=== PATIENT | female | born 1970 | race Caucasian/White ===

== ENCOUNTER 2022-01-23 12:03 | Emergency (ER) | payer OTHER, SELFPAY ==
--- NOTE | ~2022-01-23 | CT_ITS ---
EXAMINATION: CT abdomen pelvis w con DATE: 01/23/2022 14:02 INDICATION: Right upper quadrant abdominal pain, nausea TECHNIQUE: Computed tomography (CT) of the abdomen and pelvis was performed with 100 CC Omnipaque 350 intravenous contrast. Automated exposure control and iterative reconstruction technique were employe d. Exam dose: 1260.70 mGy-cm total exam DLP. COMPARISON: None. FINDINGS: The lung bases are clear. Heart size is within normal limits. No pericardial or pleural eff usion. Small sliding hiatal hernia. Diffuse hepatic steatosis. No hepatic surface nodularity. No hepatic space-occupying mass lesion. The gallbladder appears unremarkable. No gallbladder wall thickening or pericholecystic fluid or fat str anding. No bile duct or pancreatic duct dilatation. No pancreatic mass lesion or calcification. Normal splenic size. Normal morphology of the adrenal glands. A couple of very small lower pole right renal cysts are suggested. There are at least 2 left renal cy sts, measuring up to 11 and 12 mm. Approximately 6 x 7 mm lower pole nonobstructing left renal calculus with attenuation of approximatel y 700 Hounsfield units. No other urinary tract calculus or hydroureteronephrosis. The uterus is absen t. The ovaries appear unremarkable. Normal caliber of the abdominal aorta. No intraperitoneal or retroperitoneal or pelvic mass lesion or adenopathy or ascites. Approximately 1.6 x 2.3 cm cystic lesion is noted in the right vaginal area. Normal appendix. There is a prominent of fecal colon but no bowel obstruction, bowel wall thickening, pneumatosis or intraperitoneal free air. No suspicious osteolytic or osteoblastic lesions.. IMPRESSION: Normal appendix 1.6 x 2.3 cm right vaginal cyst Approximately 7 mm nonobstructing lower pole left renal cyst Occasional renal cysts, measuring 12 mm Hepatic steatosis Status post hysterectomy Reviewed, dictated and finalized at [facility]. Reviewed, dictated and finalized at location [facility].
--- NOTE | ~2022-01-23 | US_ITS ---
EXAMINATION: US abdomen limited DATE: 01/23/2022 15:25 INDICATION: RUQ pain TECHNIQUE: Multiple grayscale and Doppler ultrasound images of limited portions of the abdomen were o btained. COMPARISON: None available. FINDINGS: The visualized portions of the pancreas are normal. The liver is increased in size with inc reased echogenicity and slightly heterogeneous echotexture. No surface nodularity. Normal hepatopetal flow in the main portal vein. The gallbladder is normal with no abnormal wall thickening, pericholec ystic fluid or stones. The common bile duct measures 4 mm. There was no sonographic Maria sign. IMPRESSION: Hepatomegaly. Echogenic liver, most commonly due to steatosis but also can be seen with hepatitis and fibrosis. Reviewed, dictated and finalized at location [facility]. IMPRESSION: Hepatomegaly. Echogenic liver, most commonly due to steatosis but also can be s een with hepatitis and fibrosis.
[2022-01-23 12:26] VITALS: BP 112/71; PULSE 84; RESP 14; TEMP 36.5; O2SAT 98
[2022-01-23 12:47] LABS: Basophils Absolute Auto 0.1 K/mm3 (0.0-0.1); Basophils Percent Auto 1.1 % (0.2-1.2); Eosinophils Absolute Auto 0.5 K/mm3 (0-0.3); Eosinophils Percent Auto 4.7 % (0-4.4); Immature Granulocyte Absolute 0.44 K/mm3 (0.00-0.031); Immature Granulocyte Percent A 4.4 % (0-0.5); Lymphocytes Absolute Auto 2.35 K/mm3 (0.9-3.2); Lymphocytes Percent Auto 23.3 % (18.3-44.2); Mean Corpuscular HGB Conc 32.6 g/dl (32-36); Mean Corpuscular Hemoglobin 29.2 pg (26-34); Mean Corpuscular Volume 89.8 fl (80-100); Mean Platelet Volume 9.5 fl (7.4-10.4); Monocytes Absolute Auto 0.6 K/mm3 (0.1-0.6); Monocytes Percent Auto 5.6 % (2.6-8.5); Neutrophils Absolute Auto 6.2 K/mm3 (1.3-6.7); Neutrophils Percent Auto 60.9 % (45.5-73.1); Platelet Count Result 293 k/mm3 (150-375); Red Blood Count 4.79 M/mm3 (4.2-5.4); Red Cell Distribution Width 13.9 % (11.5-14.5); White Blood Count 10.1 K/mm3 (4.5-10.0)
[2022-01-23 12:57] LABS: Alanine Aminotransferase 39 U/L (6-35); Albumin Level 4.2 g/dL (3.5-5.1); Alkaline Phosphatase 58 U/L (38-126); Anion Gap 12 mmol/L (8-16); Aspartate Amino Transferase 33 U/L (14-36); Bilirubin,Total 0.5 mg/dL (0.2-1.3); Blood Urea Nitrogen 15 mg/dL (7-17); Calcium 8.3 mg/dL (8.4-10.2); Carbon Dioxide 25 mmol/L (22-30); Chloride 100 mmol/L (98-107); Estimated CRCL calculation 127 ml/min; Estimated Glomerular Filt Rate > 60; Glucose 100 mg/dL (65-110); Lipase 148 U/L (23-300); Potassium 3.8 mmol/L (3.4-5.0); Sodium 137 mmol/L (137-145)
[2022-01-23 12:58] LABS: Appearance Urine Clear (Clear); Bilirubin Urine 1+ (Negative); Blood Urine Trace-intact (Negative); Color Urine Yellow (Yellow); Glucose Urine UA 2+ mg/dL (Negative); Ketones Urine 1+ mg/dL (Negative); Leukocyte Esterase Ur Negative LEU/UL (Negative); Nitrate Urine Negative (Negative); Protein Urine Negative (Negative); Urobilinogen Urine 0.2 mg/dL (<2.0)
[2022-01-23 13:07] LABS: Bacteria Urine Trace /hpf; Mucus Urine Rare /lpf; Squamous Epithelial Cell Urine Many /hpf (Few); WBC Urine 0-3 /hpf
[2022-01-23 13:12] LABS: Add Urine Microscopic? YES
--- NOTE | 2022-01-23 14:54 | ED.ABDPAIN ---
HPI - Abdominal Pain General Chief Complaint: Abdominal Pain Stated Complaint: RUQ PAIN Time Seen by Provider: 01/23/22 13:27 History of Present Illness HPI narrative: 51-year-old female presented to the emergency department from an urgent care for evaluation of abdominal pain. Patient states that she initially presented to the urgent care for evaluation of persistent sinus infection after a recent episode of bronchitis. During her exam they pressed on her abdomen and she had new tenderness. She was sent to the emergency room for evaluation for the new tenderness. Patient denies any significant abdominal pain but does admit to having tenderness to palpation. Related Data Allergies Allergy/AdvReac Type Severity Reaction Status Date / Time terbinafine Allergy Unknown Rash Verified 01/23/22 13:24 Review of Systems Review of Systems: CONSTITUTIONAL: Denies fever, chills, or sweats. EYES: Denies visual changes, redness, or discharge. ENT: Denies rhinorrhea, congestion, sore throat, or otalgia. CARDIOVASCULAR: Denies chest pain, palpitations, or edema. RESPIRATORY: See HPI GASTROINTESTINAL: See HPI GENITOURINARY: Denies dysuria or hematuria. SKIN: Denies rash or itching. MUSCULOSKELETAL: Denies back pain, joint pain, or myalgia. NEUROLOGIC: Denies headache, numbness, or weakness. [facility] Family History Family History (Updated 11/15/14 @ 10:46 by DOCTOR UNKNOWN) Other Cerebrovascular accident Diabetes mellitus Family history of cardiovascular disease Hypertension Social History Social History Smoking status: Never smoker Alcohol intake: current Exam Narrative: APPEARANCE: Well appearing, no pain, no distress, well-nourished. HEAD: normocephalic, atraumatic. EYES: PERRLA/EOMI, conjunctivae clear. NOSE: Normal no drainage EARS:TMS clear with good light reflex. THROAT: Pharynx clear, no exudate. NECK: Supple. No adenopathy, no masses. RESPIRATORY: Airway patent, respirations nonlabored. Clear to auscultation bilaterally, no rales, rhonchi, wheezing. CARDIOVASCULAR: Regular rate and rhythm without murmurs rubs or gallops. ABDOMINAL: Right-sided on tenderness to palpation MUSCULOSKELETAL: Moves all extremities. Strength/ROM intact, No edema, No calf tenderness. NEURO: Alert. Cranial nerves II through XII intact. Grossly intact SKIN: Warm, dry. Normal Color Course Course Emergency Course: Patient is afebrile with a leukocytosis of 10.1. CT scan showed normal appendix, right vaginal cyst, nonobstructing renal cyst, hepatic steatosis. Right upper quadrant ultrasound was due to the patient having some abdominal right upper quadrant tenderness. No evidence of acute cholecystitis was noted. Patient was updated the results of her work-up and was comfortable having close follow-up with her primary care physician. Patient reiterated that she is mainly here for the nasal congestion. Patient is still taking antibiotics. Patient was encouraged to continue the antibiotics and to also take a mild decongestant. Patient was educated reasons to return to the emergency department. All questions concerns were addressed. Vital Signs Vital signs: Vital Signs Temperature 97.7 F 01/23/22 12:26 Pulse Rate 84 01/23/22 12:26 Respiratory Rate 14 01/23/22 12:26 Blood Pressure 112/71 01/23/22 12:26 Pulse Oximetry 98 01/23/22 12:26 Oxygen Delivery Room Air 01/23/22 12:26 Temperature 97.7 F 01/23/22 12:26 Pulse Rate 86 01/23/22 17:15 Respiratory Rate 16 01/23/22 17:15 Blood Pressure 142/84 H 01/23/22 17:15 Pulse Oximetry 98 01/23/22 17:15 Oxygen Delivery Room Air 01/23/22 12:26 MDM - Abdominal Pain Lab Data Attestation: I reviewed the patient's lab results. Result diagrams: 01/23/22 12:37 01/23/22 12:37 Labs: Lab Results 01/23/22 01/23/22 01/23/22 Range/Units 12:37 12:37 12:42 WBC 10.1 H (4.5-10.0) K/mm3 RBC 4.79 (4.2-5.4) M/m
[2022-01-23 17:15] VITALS: BP 142/84; PULSE 86; RESP 16; O2SAT 98
== END 2022-01-23 17:16 | disposition home or self-care (01) ==
PROVIDERS: Emergency Medicine; Emergency Provider Emergency Medicine; PCP Internal Medicine
DX: R10.11 Right upper quadrant pain (principal); R09.81 Nasal congestion; N28.1 Cyst of kidney, acquired; K76.0 Fatty (change of) liver, not elsewhere classified
CPT/HCPCS: 36415; 74177; 76705; 80053; 81001; 83690; 85025; 99284; Q9967

== ENCOUNTER 2022-07-04 19:09 | Observation (INO) | payer OTHER, SELFPAY ==
[2022-07-04] VITALS (15 sets, daily range): BP systolic 112; BP diastolic 65–66; PULSE 58–76; RESP 9–17; TEMP 36.6; O2SAT 93–99
--- NOTE | ~2022-07-04 | XR_ITS ---
EXAMINATION: XR chest 2V DATE: 07/04/2022 19:48 INDICATION: Chest pain and nausea TECHNIQUE: AP and lateral views of the chest are obtained. COMPARISON: 12/18/2017 FINDINGS: The lungs are free of acute opacities. No pleural effusion or pneumothorax. The cardiomedia stinal silhouette is normal. There is moderate thoracic spondylosis. IMPRESSION: 1. No acute cardiopulmonary abnormality. Reviewed, dictated and finalized at location [facility].
--- NOTE | 2022-07-04 19:16 | ECG_ITS ---
Measurements Intervals [place] Rate: 60 P: 47 MT: 200 QRS: -9 QRSD: 105 T: 19 QT: 405 QTc: 405 Interpretive Statements SINUS RHYTHM LOW QRS VOLTAGE IN PRECORDIAL LEADS CANNOT RULE OUT INFERIOR INFARCT, AGE INDETERMINATE ABNORMAL ECG NO PREVIOUS ECG AVAILABLE FOR COMPARISON Electronically Signed On 07-05-2022 16:36:43 CDT by Clinton Thomas M.D.
[2022-07-04 19:49] LABS: Basophils Absolute Auto 0.1 K/mm3 (0.0-0.1); Eosinophils Absolute Auto 0.4 K/mm3 (0-0.3); Eosinophils Percent Auto 3.9 % (0-4.4); Hematocrit 40.7 % (37.0-47.0); Hemoglobin 13.4 g/dL (12.0-15.0); Immature Granulocyte Absolute 0.11 K/mm3 (0.00-0.031); Immature Granulocyte Percent A 1.1 % (0-0.5); Lymphocytes Absolute Auto 2.27 K/mm3 (0.9-3.2); Lymphocytes Percent Auto 23.2 % (18.3-44.2); Mean Corpuscular HGB Conc 32.9 g/dl (32-36); Mean Corpuscular Hemoglobin 28.7 pg (26-34); Mean Corpuscular Volume 87.2 fl (80-100); Mean Platelet Volume 9.8 fl (7.4-10.4); Monocytes Absolute Auto 0.5 K/mm3 (0.1-0.6); Monocytes Percent Auto 5.4 % (2.6-8.5); Neutrophils Absolute Auto 6.4 K/mm3 (1.3-6.7); Neutrophils Percent Auto 65.4 % (45.5-73.1); Platelet Count Result 339 k/mm3 (150-375); Red Blood Count 4.67 M/mm3 (4.2-5.4); Red Cell Distribution Width 13.3 % (11.5-14.5); White Blood Count 9.8 K/mm3 (4.5-10.0)
[2022-07-04 20:01] LABS: Alanine Aminotransferase 35 U/L (6-35); Albumin Level 4.8 g/dL (3.5-5.1); Alkaline Phosphatase 67 U/L (38-126); Anion Gap 9 mmol/L (8-16); Aspartate Amino Transferase 29 U/L (14-36); Bilirubin,Total 0.5 mg/dL (0.2-1.3); Blood Urea Nitrogen 18 mg/dL (7-17); Calcium 9.2 mg/dL (8.4-10.2); Carbon Dioxide 27 mmol/L (22-30); Chloride 100 mmol/L (98-107); Estimated CRCL calculation 128 ml/min; Estimated Glomerular Filt Rate > 60; Glucose 121 mg/dL (65-110); Lipase 173 U/L (23-300); Potassium 3.8 mmol/L (3.4-5.0); Sodium 136 mmol/L (137-145)
[2022-07-04 20:03] LABS: Prothrombin Time 12.4 Seconds (11.1-14.7)
[2022-07-04 20:04] LABS: Partial Thromboplastin Time 27.8 SECONDS (22.3-36.8)
[2022-07-04] MEDS: MORPHINE SULFATE (*CRX) 4 MG/ML INJ IV PUSH (20:09)
[2022-07-04] MEDS: ASPIRIN 81 MG CHEWABLE TABLET 324 MG PO (20:09)
[2022-07-04] MEDS: NITROGLYCERIN SL 0.4 MG TABLET SUBLINGUAL (20:10)
[2022-07-04 20:11] LABS: Troponin I < 0.012 ng/mL (0.000-0.034)
--- NOTE | 2022-07-04 20:35 | ED.GENADULT ---
HPI - General Adult General Chief complaint: Chest Pain Stated complaint: chest pain/pressure Time Seen by Provider: 07/04/22 19:44 History of Present Illness HPI narrative: Patient 51-year-old female who presents the emergency department with chief complaint of chest pain. Patient reports that today she had sudden onset of discomfort in her chest. The patient states that the pain radiated up into her neck patient reports that she got diaphoretic when this episode happened. EMS was called the patient had 2 nitros by EMS and received a dose of morphine that had improvement in her chest pain patient reports she still has some tightness in her chest. Patient reports no prior CT patient does report that she has history of hypertension diabetes and had a cerebral aneurysm that was coiled in 2008. Related Data Allergies Allergy/AdvReac Type Severity Reaction Status Date / Time terbinafine Allergy Unknown Rash Verified 01/23/22 13:24 Review of Systems Review of Systems: A 10 system review of systems was completed on the patient and is negative except for what is stated in the HPI. Nursing and ancillary documentation was reviewed. [facility] Family History Family History Other Cerebrovascular accident Diabetes mellitus Family history of cardiovascular disease Hypertension Social History Social History Smoking status: Never smoker Alcohol intake: current Exam Narrative: GENERAL: Well-appearing, well-nourished, and in no acute distress. HEAD: Normocephalic, atraumatic. EYES: PERRLA and EOMI. ENT: Nares clear, no rhinorrhea or epistaxis. Mucous membranes moist. NECK: Supple. CHEST: Clear to auscultation. No respiratory distress. HEART: Regular rate and rhythm. No murmur heard. Normal peripheral pulses. ABDOMEN: Soft, nontender, nondistended, normal active bowel sounds. EXTREMITIES: Normal range of motion. No edema. SKIN: Warm, dry, no rash. NEURO: No focal deficits. Alert and oriented x3. PSYCH: Normal mood and affect. Course Vital Signs Vital signs: Vital Signs Temperature 36.6 C 07/04/22 19:25 Pulse Rate 64 07/04/22 19:25 Respiratory Rate 10 L 07/04/22 19:25 Blood Pressure 112/66 07/04/22 19:25 Pulse Oximetry 96 04/13/23 19:25 Oxygen Delivery Room Air 07/04/22 19:25 Temperature 36.6 C 07/04/22 19:25 Pulse Rate 62 07/05/22 00:52 Respiratory Rate 14 07/05/22 00:52 Blood Pressure 104/66 07/05/22 00:52 Pulse Oximetry 96 07/05/22 00:52 Oxygen Delivery Room Air 07/04/22 19:25 Medical Decision Making MDM Narrative Medical decision making narrative: Differential diagnosis includes ACS, chest wall pain, unstable angina, Initial EKG is sinus rhythm rate of [address] elevation or ST depression Laboratory studies were obtained which showed a negative troponin negative lipase electrolytes showed no acute abnormalities CBC was within normal limits Chest x-ray showed no focal infiltrate Vital Signs Vital Signs: Vital Signs Temperature 36.6 C 07/04/22 19:25 Pulse Rate 64 07/04/22 19:25 Respiratory Rate 10 L 07/04/22 19:25 Blood Pressure 112/66 07/04/22 19:25 Pulse Oximetry 96 07/04/22 19:25 Oxygen Delivery Room Air 07/04/22 19:25 Temperature 36.6 C 07/04/22 19:25 Pulse Rate 62 07/05/22 00:52 Respiratory Rate 14 07/05/22 00:52 Blood Pressure 104/66 07/05/22 00:52 Pulse Oximetry 96 07/05/22 00:52 Oxygen Delivery Room Air 07/04/22 19:25 Lab Data 07/04/22 19:34 07/04/22 19:34 Labs: Lab Results 07/04/22 07/04/22 07/04/22 Range/Units 19:34 19:34 19:34 WBC 9.8 (4.5-10.0) K/mm3 RBC 4.67 (4.2-5.4) M/mm3 Hgb 13.4 (12.0-15.0) g/dL Hct 40.7 (37.0-47.0) % MCV 87.2 (80-100) fl MCH 28.7 (26-34) pg MCHC 32.9 (32-36) g/dl RDW 13.3 (
[2022-07-04 23:06] LABS: Troponin I < 0.012 ng/mL (0.000-0.034)
[2022-07-05 00:52] VITALS: BP 104/66; PULSE 62; RESP 14; O2SAT 96
[2022-07-05 01:56] VITALS: BMI 33.7
--- NOTE | 2022-07-05 01:57 | ADMGEN ---
This patient, Danni Boone, was admitted to Intensive Care Unit-3. Patient/family oriented to hospital policies and general routines including ID bracelet, bed and alarms, visiting hours, pain management, procedures, bathroom and other care routines, personal items, smoking policy, room service/diet, and visiting hours. Information on how to activate the Rapid Response Team has been discussed. Patient/Family are encouraged to report perceived risks to care and to ask questions if they do not understand what they are told or what they should do.
[2022-07-05 02:03] LABS: Troponin I < 0.012 ng/mL (0.000-0.034)
[2022-07-05 04:00] VITALS: BP 108/60; PULSE 70; PULSE 72; RESP 13; TEMP 36.4; O2SAT 94
[2022-07-05 08:00] VITALS: BP 106/67; PULSE 56; PULSE 68; RESP 10; TEMP 37.1; O2SAT 97
[2022-07-05 09:56] VITALS: PULSE 61
[2022-07-05] MEDS: ONDANSETRON INJ 4 MG/2 ML VIAL IV PUSH (10:01)
[2022-07-05 11:21] LABS: Glucose Point of Care 128 mg/dl (65-105)
--- NOTE | 2022-07-05 11:22 | PM.IMHP ---
H&P: HPI History of Present Illness Date/Time: 07/05/22 11:22 Chief Complaint: Chest pain Narrative: Patient 51-year-old female who presents the emergency department with chief complaint of chest pain.? Patient reports that today she had sudden onset of discomfort in her chest.? The patient states that the pain radiated up into her neck patient reports that she got diaphoretic when this episode happened.? EMS was called the patient had 2 nitros by EMS and received a dose of morphine that had improvement in her chest pain patient reports she still has some tightness in her chest.? Patient reports no prior PR patient does report that she has history of hypertension diabetes and had a cerebral aneurysm that was coiled in 2008. Review of Systems Review of Systems: A 10 system review of systems was completed on the patient and is negative except for what is stated in the HPI. Nursing and ancillary documentation was reviewed. [facility] Family History Family History Grandparent Cerebrovascular accident Hypertension Mother Diabetes mellitus Family history of cardiovascular disease Mother No problems noted. Social History Social History Smoking status: Current every day smoker Tobacco type: e-cigarettes/vaping Additional smoking assessment comments: Not sure on how much nicotine, smokes one pod a day of custom fluid Alcohol intake: current Substance use: current Substance use type: marijuana Last use: 07/03/22 Lack of Transportation: No Lack of Food: Never True Current Housing: I Have Housing Concerned About Future Housing: No Difficulty Paying Gas/Electric Bills: No Difficulty Paying for Meds: No Currently Unemployed: No Education: High School Diploma/GED Difficulty w/ Childcare or Family Care: No Spiritual care concerns: No Meds Home Medications and Allergies Home Medications Medication Instructions Recorded Confirmed Type aripiprazole 10 mg tablet 10 mg PO DAILY 07/05/22 07/05/22 History celecoxib 100 mg capsule 100 mg PO DAILY 07/05/22 07/05/22 History empagliflozin 10 mg tablet 10 mg PO DAILY 07/05/22 07/05/22 History (Jardiance) escitalopram oxalate 10 mg tablet 10 mg PO HS 07/05/22 07/05/22 History famotidine 20 mg tablet 10 mg PO BID PRN Acid Reflux 07/05/22 07/05/22 History insulin glargine 100 unit/mL (3 36 unit subcut QAM 07/05/22 07/05/22 History mL) subcutaneous pen (Basaglar KwikPen U-100 Insulin) liraglutide 0.6 mg/0.1 mL (18 mg/3 1.8 mg subcut DAILY 07/05/22 07/05/22 History mL) subcutaneous pen injector (Victoza 3-Mathew) lisinopril 20 mg tablet 20 mg PO DAILY 07/05/22 07/05/22 History metformin 500 mg tablet 500 mg PO BID 07/05/22 07/05/22 History metoprolol succinate 50 mg 50 mg PO DAILY 07/05/22 07/05/22 History tablet,extended release 24 hr pregabalin 200 mg capsule 200 mg PO BID 07/05/22 07/05/22 History trazodone 100 mg tablet 200 mg PO HS 07/05/22 07/05/22 History Allergies Allergy/AdvReac Type Severity Reaction Status Date / Time terbinafine Allergy Unknown Rash Verified 01/23/22 13:24 Vital Signs Vital Signs - 24 hr 07/04/22 19:25 07/04/22 19:30 07/04/22 19:28 Temperature 97.8 F Pulse Rate 64 66 60 Respiratory Rate 10 L 12 Blood Pressure 112/66 Pulse Oximetry 96 99 Oxygen Delivery Room Air 07/04/22 19:30 07/04/22 19:31 07/04/22 19:48 Temperature Pulse Rate 72 63 69 Respiratory Rate 14 13 10 L Blood Pressure 112/65 Pulse Oximetry 96 95 97 Oxygen Delivery 07/04/22 20:02 07/04/22 20:16 07/04/22 20:30 Temperature Pulse Rate 58 L 71 65 Respiratory Rate 11 L 16 14 Blood Pressure Pulse Oximetry 96 95 95 Oxygen Delivery 07/04/22 20:45 07/04/22 21:00 07/04/22 21:16 Temperature Pulse Rate 60 66 66 Respiratory Rate 10 L 15 11 L Blood Pressure Pulse Oximetry 99 93
--- NOTE | 2022-07-05 12:14 | PM.DS ---
DS: Admitting Diagnosis Discharge Date 07/05/22 Admitting Diagnosis Chest pain DS: Discharge Diagnosis Discharge Diagnosis (1) Chest pain: Code(s): R07.9 - Chest pain, unspecified Status: Acute (2) HTN (hypertension): Code(s): I10 - Essential (primary) hypertension Status: Acute (3) DM type 2 (diabetes mellitus, type 2): Code(s): E11.9 - Type 2 diabetes mellitus without complications Status: Acute DS: Summary Hospital Course Hospital Course: Patient was admitted with chest pain. Troponin was negative. Patient was waiting for Cardiology consult but she decided to leave AMA Time Spent with Patient Time attestation: Total time spent providing and/or coordinating discharge services: DS: Data Data Completed and Pending Labs on day of discharge: Labs from last 24 hours 07/05/22 07/05/22 07/04/22 11:18 01:15 22:20 WBC RBC Hgb Hct MCV MCH MCHC RDW Plt Count MPV Immature Gran % (Auto) Neut % (Auto) Lymph % (Auto) [place] % (Auto) Eos % (Auto) Baso % (Auto) Lymph # (Auto) [place] # (Auto) Eos # (Auto) Baso # (Auto) Abs Immat Gran (auto) Absolute Neuts (auto) Absolute Nucleated RBC Nucleated RBC % PT INR APTT Sodium Potassium Chloride Carbon Dioxide Anion Gap BUN Creatinine Estim Creat Clear Calc Estimated GFR Glucose POC Capillary Glucose 128 H Calcium Total Bilirubin AST ALT Alkaline Phosphatase Troponin I < 0.012 < 0.012 Total Protein Albumin Lipase 07/04/22 07/04/22 07/04/22 19:34 19:34 19:34 WBC 9.8 RBC 4.67 Hgb 13.4 Hct 40.7 MCV 87.2 MCH 28.7 MCHC 32.9 RDW 13.3 Plt Count 339 MPV 9.8 Immature Gran % (Auto) 1.1 H Neut % (Auto) 65.4 Lymph % (Auto) 23.2 [place] % (Auto) 5.4 Eos % (Auto) 3.9 Baso % (Auto) 1.0 Lymph # (Auto) 2.27 [place] # (Auto) 0.5 Eos # (Auto) 0.4 H Baso # (Auto) 0.1 Abs Immat Gran (auto) 0.11 H Absolute Neuts (auto) 6.4 Absolute Nucleated RBC 0.0 Nucleated RBC % 0.0 PT 12.4 INR 1.0 APTT 27.8 Sodium 136 L Potassium 3.8 Chloride 100 Carbon Dioxide 27 Anion Gap 9 BUN 18 H Creatinine 0.50 L Estim Creat Clear Calc 128 Estimated GFR > 60 Glucose 121 H POC Capillary Glucose Calcium 9.2 Total Bilirubin 0.5 AST 29 ALT 35 Alkaline Phosphatase 67 Troponin I < 0.012 Total Protein 8.0 Albumin 4.8 Lipase 173 Discharge Plan Discharge Consulting providers: Spike Rossi Patient Disposition: Left Against Medical Advice Patient Instructions: How to Stop Smoking (DC), Electronic Cigarettes and Your Health (GEN) Discharge Medications: No Action metformin 500 mg tablet 500 mg PO BID metoprolol succinate 50 mg tablet extended release 24 hr 50 mg PO DAILY lisinopril 20 mg tablet 20 mg PO DAILY famotidine 20 mg tablet 10 mg PO BID PRN (Reason: Acid Reflux) trazodone 100 mg tablet 200 mg PO HS celecoxib 100 mg capsule 100 mg PO DAILY escitalopram oxalate 10 mg tablet 10 mg PO HS aripiprazole 10 mg tablet 10 mg PO DAILY pregabalin 200 mg capsule 200 mg PO BID insulin glargine [Basaglar KwikPen U-100 Insulin] 100 unit/mL (3 mL) insulin pen 36 unit SUBCUT QAM Victoza 3-Mathew 0.6 mg/0.1 mL (18 mg/3 mL) pen injector 1.8 mg SUBCUT DAILY Jardiance 10 mg tablet 10 mg PO DAILY Date of admission: 07/05/22 00:59 Primary Care Provider: Frank,Mu Admitting Provider: Ann Arreola Attending physician on admission: Abdulkadir Hayes Condition: Stable
== END 2022-07-05 12:12 | disposition left against medical advice (07) ==
LOC: ANHED 07-05 00:59 → ANHICU 07-05 01:13
PROVIDERS: Emergency Medicine; Admitting Provider Hospitalist; Emergency Provider Emergency Medicine; PCP Internal Medicine; Visit Provider Hospitalist
DX: R07.9 Chest pain, unspecified (principal); I10 Essential (primary) hypertension; E11.9 Type 2 diabetes mellitus without complications; R94.31 Abnormal electrocardiogram [ECG] [EKG]; F17.290 Nicotine dependence, other tobacco product, uncomplicated; F10.90 Alcohol use, unspecified, uncomplicated; F12.90 Cannabis use, unspecified, uncomplicated; Z79.4 Long term (current) use of insulin; Z79.84 Long term (current) use of oral hypoglycemic drugs; Z79.899 Other long term (current) drug therapy; Z82.49 Family history of ischemic heart disease and other diseases of the circulatory system; Z83.3 Family history of diabetes mellitus
CPT/HCPCS: 36415; 71046; 80053; 82948; 83690; 84484; 85025; 85610; 85730; 93005; 96374; 99285; A9270; G0378; J2270; J2405

== ENCOUNTER 2023-01-15 17:31 | Emergency (ER) | payer OTHER, SELFPAY ==
[2023-01-15] VITALS (13 sets, daily range): BP systolic 109–133; BP diastolic 65–97; PULSE 52–71; RESP 13–20; TEMP 36.4; O2SAT 95–100
--- NOTE | ~2023-01-15 | XR_ITS ---
EXAMINATION: XR chest 1V portable Exam Date/Time: 01/15/2023 20:10 CDT HISTORY: cough, Covid +, smoker Comparison: 07/04/2022. RESULT: Lines, tubes, and devices: None. Lungs and pleura: Clear. Cardiomediastinal silhouette: Stable. Other: No acute osseous or upper abdominal finding. IMPRESSION: No acute cardiopulmonary process. Reviewed, dictated and finalized at location K.
--- NOTE | ~2023-01-15 | CT_ITS ---
EXAMINATION: CTA chest PE protocol DATE: 01/15/2023 21:41 INDICATION: Dyspnea, elevated D-dimer TECHNIQUE: Computed tomography angiography (CTA) of the chest was performed with 100 mL Omnipaque-350 intravenous contrast timed to evaluate the pulmonary arteries. Coronal maximum intensity projection 3D-reconstructions were created by the technologist. The dose-length product (DLP) was 781.87 mGy-cm. Automated exposure control and iterative reconstruction technique were employed. COMPARISON: None. FINDINGS: Lung parenchyma and airways: Mild atelectasis otherwise clear x-ray chest, same date. Pleura: Unremarkable. Thoracic inlet, axillae and chest wall: Unremarkable. Thoracic aorta: Normal. Mediastinum: Normal. Heart and pericardium: Normal. Coronary artery calcifications: Absent. Upper abdomen: Steatosis. Bones: No acute osseous finding. Pulmonary arteries: Study quality: Adequate. No pulmonary emboli detected. IMPRESSION: No CT evidence of acute pulmonary embolus. Reviewed, dictated and finalized at location K.
--- NOTE | 2023-01-15 20:02 | ECG_ITS ---
Measurements Intervals [place] Rate: 61 P: 51 DE: 228 QRS: -3 QRSD: 90 T: 7 QT: 420 QTc: 425 Interpretive Statements SINUS RHYTHM WITH FIRST DEGREE AV BLOCK LOW QRS VOLTAGE IN PRECORDIAL LEADS [QRS DEFLECTION < 1.0 mV IN CHEST LEADS] COMPARED TO ECG 07/04/2022 19:27:13 FIRST DEGREE AV BLOCK NOW PRESENT Electronically Signed On 01-16-2023 12:55:38 CDT by Rica Yepez M.D.
--- NOTE | 2023-01-15 20:05 | ED.GENADULT ---
HPI - General Adult General Chief complaint: Unspecified Stated complaint: reaction to antibx Time Seen by Provider: 01/15/23 19:50 Source: patient Limitations: no limitations History of Present Illness HPI narrative: Patient is a 52-year-old female present to the emergency department complaining of shortness of breath, cough, nasal congestion. Patient states that she been experiencing symptoms for the past 2 weeks and notes that she was diagnosed with COVID as an outpatient if she were half weeks ago and then tested positive again a few days ago and feels as though her sore throat is improving however she is having a persistent cough that is productive of yellow sputum and she was started on a Z-Mathew today and took 1 dose by her primary care physician who called in a prescription and she talked to them but did not see the provider. Patient denies chest pain. Patient notes that she has been feeling progressively more short of breath with exertion and feels short of breath just walking across the room. Patient denies history of heart disease or abnormal heart rhythms. Patient denies history of blood clots or unilateral lower extremity swelling. Patient denies any recent injuries or rash. Patient denies nausea, vomiting, abdominal pain, melena, hematochezia. Patient emesis some softer stools. Patient denies use of immunosuppressants but admits to history of ankylosing spondylitis in remission no symptoms to history of diabetes and high blood pressure and denies any history of coronary intervention. Patient denies fever but admits to some hot flashes intermittently at home. Related Data Home Medications Medication Instructions Recorded Confirmed aripiprazole 10 mg tablet 10 mg PO DAILY 07/05/22 07/05/22 celecoxib 100 mg capsule 100 mg PO DAILY 07/05/22 07/05/22 empagliflozin 10 mg tablet 10 mg PO DAILY 07/05/22 07/05/22 (Jardiance) escitalopram oxalate 10 mg tablet 10 mg PO HS 07/05/22 07/05/22 famotidine 20 mg tablet 10 mg PO BID PRN Acid Reflux 07/05/22 07/05/22 insulin glargine 100 unit/mL (3 36 unit subcut QAM 07/05/22 07/05/22 mL) subcutaneous pen (Basaglar KwikPen U-100 Insulin) liraglutide 0.6 mg/0.1 mL (18 mg/3 1.8 mg subcut DAILY 07/05/22 07/05/22 mL) subcutaneous pen injector (365 Good Teachertoza 3-Mathew) lisinopril 20 mg tablet 20 mg PO DAILY 07/05/22 07/05/22 metformin 500 mg tablet 500 mg PO BID 07/05/22 07/05/22 metoprolol succinate 50 mg 50 mg PO DAILY 07/05/22 07/05/22 tablet,extended release 24 hr pregabalin 200 mg capsule 200 mg PO BID 07/05/22 07/05/22 trazodone 100 mg tablet 200 mg PO HS 07/05/22 07/05/22 Allergies Allergy/AdvReac Type Severity Reaction Status Date / Time terbinafine Allergy Unknown Rash Verified 01/23/22 13:24 Review of Systems Review of Systems: A 10 system review of systems was completed on the patient and is negative except for what is stated in the HPI. Nursing and ancillary documentation was reviewed. [facility] Family History Family History Grandparent Cerebrovascular accident Hypertension Mother Diabetes mellitus Family history of cardiovascular disease Mother No problems noted. Social History Social History Smoking status: Current every day smoker Tobacco type: e-cigarettes/vaping Additional smoking assessment comments: Not sure on how much nicotine, smokes one pod a day of custom fluid Alcohol intake: current Substance use: current Substance use type: marijuana Last use: 07/03/22 Lack of Transportation: No Lack of Food: Never True Current Housing: I Have Housing Concerned About Future Housing: No Difficulty Paying Gas/Electric Bills: No Difficulty Paying for Meds: No Currently Unemployed: No Education: High School Diploma/GED Difficulty w/ Childcare or Family Care: No Spiritual care concerns: No Comments At time of
[2023-01-15] MEDS: SODIUM CHLORIDE 0.9% IV 1,000 ML 999 ML IV CONT (20:37)
[2023-01-15 20:45] LABS: Basophils Absolute Auto 0.1 K/mm3 (0.0-0.1); Basophils Percent Auto 1.2 % (0.2-1.2); Eosinophils Absolute Auto 0.5 K/mm3 (0-0.3); Eosinophils Percent Auto 6.2 % (0-4.4); Hemoglobin 13.8 g/dL (12.0-15.0); Immature Granulocyte Absolute 0.16 K/mm3 (0.00-0.031); Immature Granulocyte Percent A 1.9 % (0-0.5); Lymphocytes Absolute Auto 2.26 K/mm3 (0.9-3.2); Lymphocytes Percent Auto 26.2 % (18.3-44.2); Mean Corpuscular HGB Conc 32.9 g/dl (32-36); Mean Corpuscular Hemoglobin 28.5 pg (26-34); Mean Corpuscular Volume 86.8 fl (80-100); Mean Platelet Volume 10.2 fl (7.4-10.4); Monocytes Absolute Auto 0.4 K/mm3 (0.1-0.6); Monocytes Percent Auto 5.1 % (2.6-8.5); Neutrophils Absolute Auto 5.1 K/mm3 (1.3-6.7); Neutrophils Percent Auto 59.4 % (45.5-73.1); Platelet Count Result 322 k/mm3 (150-375); Red Blood Count 4.84 M/mm3 (4.2-5.4); Red Cell Distribution Width 13.1 % (11.5-14.5); White Blood Count 8.6 K/mm3 (4.5-10.0)
[2023-01-15 20:55] LABS: INR 0.9; Prothrombin Time 12.7 Seconds (11.1-14.7)
[2023-01-15 20:56] LABS: Partial Thromboplastin Time 26.7 SECONDS (22.3-36.8)
[2023-01-15 20:58] LABS: Alanine Aminotransferase 32 U/L (6-35); Albumin Level 4.4 g/dL (3.5-5.1); Alkaline Phosphatase 61 U/L (38-126); Anion Gap 9 mmol/L (8-16); Aspartate Amino Transferase 27 U/L (14-36); Bilirubin,Total 0.4 mg/dL (0.2-1.3); Blood Urea Nitrogen 16 mg/dL (7-17); Calcium 9.3 mg/dL (8.4-10.2); Carbon Dioxide 23 mmol/L (22-30); Chloride 102 mmol/L (98-107); Estimated CRCL calculation 151 ml/min; Estimated Glomerular Filt Rate > 60; Glucose 241 mg/dL (65-110); Magnesium 1.7 mg/dL (1.6-2.3); Potassium 3.9 mmol/L (3.4-5.0); Sodium 134 mmol/L (137-145)
[2023-01-15 21:00] LABS: D Dimer 0.91 ug/mL (<0.48)
[2023-01-15 21:09] LABS: NT Pro B Type Natriuretic Pept 29 pg/mL (19.9-100); Troponin I < 0.012 ng/mL (0.000-0.034)
== END 2023-01-15 23:03 | disposition home or self-care (01) ==
PROVIDERS: Emergency Provider Student in an Organized Health Care Education/Training Program; PCP Internal Medicine
DX: R06.00 Dyspnea, unspecified (principal); U09.9 Post COVID-19 condition, unspecified; I44.30 Unspecified atrioventricular block; F17.290 Nicotine dependence, other tobacco product, uncomplicated
CPT/HCPCS: 36415; 71045; 71275; 80053; 83735; 83880; 84443; 84484; 85025; 85380; 85610; 85730; 93005; 96360; 99284; J7030; Q9967

== ENCOUNTER 2023-03-06 18:52 | Observation (INO) | payer SELFPAY ==
--- NOTE | ~2023-03-06 | XR_ITS ---
EXAMINATION: XR hip BI 2V w AP pelvis DATE: 03/06/2023 20:01 INDICATION: Pelvic pain post fall TECHNIQUE: Anteroposterior view of the pelvis and anteroposterior and frog-leg lateral views of the l eft hip and anteroposterior and frog-leg lateral views of the right hip and were obtained. COMPARISON: None. FINDINGS: Alignment is normal. No fracture. Particular osteoarthritis, mild at the bilateral hips and moderate at the bilateral sacroiliac joints. There is also severe lower lumbar facet osteoarthritis. There are few phleboliths in the left hemipelvis. There are couple stones at the lower pole of the left kidney the larger measuring 6 mm. IMPRESSION: 1. Degenerative skeletal changes in the pelvis and lower lumbar spine. No acute osseous abnormality. 2. Left nephrolithiasis. Reviewed, dictated and finalized at location A. SE CONSULTANT
--- NOTE | ~2023-03-06 | US_ITS ---
EXAMINATION: US carotid duplex BI DATE: 03/07/2023 10:53 INDICATION: Syncope. TECHNIQUE: Grayscale, color Doppler, and pulsed Doppler images of the cervical carotid arteries were obtained. The degree of vessel stenosis is placed in one of the following categories: normal, <50%, 5 0-69%, >=70% but less than near-occlusion, near-occlusion, or total occlusion. Note that percent sten osis relative to normal distal artery lumen diameter is indirectly measured from velocity measurement s as described by Tanner, et al. Radiology 2003; 229:340-346. COMPARISON: Ultrasound 10/05/2003 FINDINGS: RIGHT: The right common carotid artery (CCA) peak systolic velocity (PSV) is 113 cm/s. The right internal ca rotid artery (ICA) PSV is 73 cm/s. The right ICA end-diastolic velocity (EDV) is 34 cm/s. The right I CA/CCA PSV ratio is 0.7. Grayscale and color Doppler images yield an estimate of <50% diameter reduct ion from plaque in the ICA. There is antegrade flow in the right vertebral artery. LEFT: The left CCA PSV is 121 cm/s. The left ICA PSV is 100 cm/s. The left ICA EDV is 33 cm/s. The left ICA /CCA PSV ratio is 0.8. Grayscale and color Doppler images yield an estimate of <50% diameter reductio n from plaque in the ICA. There is antegrade flow in the left vertebral artery. IMPRESSION: 1. <50% stenosis in the right internal carotid artery. 2. <50% stenosis in the left internal carotid artery. Reviewed, dictated and finalized at location A. ENTICE/LINEMAN
--- NOTE | ~2023-03-06 | CT_ITS ---
EXAMINATION: CT cervical spine wo con DATE: 03/06/2023 20:01 INDICATION: Posterior neck pain post fall TECHNIQUE: Computed tomography (CT) of the cervical spine was performed without intravenous contrast. Automated exposure control and iterative reconstruction technique were employed. The dose-length pro duct was 431.75 mGy-cm. COMPARISON: None FINDINGS: Slight reversal of normal cervical lordosis. No spondylolisthesis or facet subluxation. Vertebral bod y heights are normal. No fractures. Moderate disc height loss with severe bilateral uncovertebral ost eoarthritis at C5-C6 and with moderate bilateral uncovertebral osteoarthritis at C6-C7. Mild disc hei ght loss at C4-C5 with mild uncovertebral osteoarthritis. Severe left-sided and moderate right-sided facet osteoarthritis at C7-T1. Small to moderate osteoarthritis in the more cephalad cervical spine. Small posterior disc osteophyte complexes at C6 and C6-C7 resulting mild central canal stenosis at [place] th levels. There is mild neural foraminal stenosis bilaterally at C5-C6. Visualized apices of lungs a re clear. Cervical soft tissues are unremarkable. IMPRESSION: 1. Moderate lower cervical spondylosis. No acute osseous abnormality. Reviewed, dictated and finalized at location A. ER JOINER
--- NOTE | ~2023-03-06 | CT_ITS ---
EXAMINATION: CT brain wo con DATE: 03/06/2023 20:00 INDICATION: Headache and neck pain post fall with left-sided head injury TECHNIQUE: Computed tomography (CT) of the head was performed without intravenous contrast. Sagittal and coronal reconstructions were performed. The mA was adjusted according to patient size. Iterative reconstruction technique was employed. The dose-length product was 681.00 mGy-cm. COMPARISON: head CT dated 02/27/2018 FINDINGS: No fracture. No acute intracranial hemorrhage, acute infarction or abnormal extra axial fluid collect ion. Metallic likely embolization coils at the left side of the suprasellar cistern. Ventricles are n ormal and symmetric. No mass/mass effect. Mucosal thickening in some bubbly mucus in the dependent ri ght maxillary sinus. Suggestion of a partially visualized mucous retention cyst at the posterior left maxillary sinus. The orbits and mastoid air cells are normal. IMPRESSION: 1. No fracture or acute intracranial process. 2. Bubbly mucus in the right maxillary sinus which could be seen with acute sinusitis. Reviewed, dictated and finalized at location A. AVER LETTER IMPRESSION: 1. No fracture or acute intracranial process. 2. Bubbly mucus in the right maxillary sinus which could be seen with acute sin usitis.
[2023-03-06 18:52] VITALS: BP 116/62; PULSE 81; RESP 20; TEMP 36.9; O2SAT 94
--- NOTE | 2023-03-06 19:13 | ECG_ITS ---
Measurements Intervals [place] Rate: 76 P: 61 AL: 203 QRS: -6 QRSD: 100 T: 30 QT: 375 QTc: 422 Interpretive Statements SINUS RHYTHM WITH FIRST-DEGREE AV BLOCK LOW QRS VOLTAGE IN PRECORDIAL LEADS [QRS DEFLECTION < 1.0 mV IN CHEST LEADS] POOR R-WAVE PROGRESSION/CANNOT EXCLUDE PREVIOUS ANTEROSEPTAL PA ABNORMAL ECG COMPARED TO ECG 01/15/2023 21:07:19 NO SIGNIFICANT CHANGES Electronically Signed On 03-07-2023 14:19:31 TECHNICAL PROFESSIONAL by Emerson Up M.D.
[2023-03-06 19:14] VITALS: BP 122/68; PULSE 87; RESP 18; O2SAT 94
[2023-03-06 19:26] LABS: Basophils Absolute Auto 0.09 K/mm3 (0.00-0.10); Eosinophils Absolute Auto 0.52 K/mm3 (0.02-0.50); Hematocrit 43.2 % (35.0-49.0); Hemoglobin 14.1 g/dL (12.0-15.0); Immature Granulocyte Absolute 0.06 K/mm3 (0.00-0.00); Immature Granulocyte Percent A 0.7 % (0.0-0.0); Lymphocytes Absolute Auto 1.26 K/mm3 (1.10-4.50); Lymphocytes Percent Auto 14.6 % (18.0-42.0); Mean Corpuscular HGB Conc 32.6 g/dL (32.0-36.0); Mean Corpuscular Hemoglobin 29.4 pg (27.0-31.0); Mean Corpuscular Volume 90.2 fL (78.0-102.0); Mean Platelet Volume 10.6 fl (9.2-11.8); Monocytes Absolute Auto 0.54 K/mm3 (0.10-0.90); Monocytes Percent Auto 6.2 % (2.0-11.0); Neutrophils Absolute Auto 6.2 K/mm3 (1.7-7.2); Neutrophils Percent Auto 71.5 % (50.0-70.0); Platelet Count Result 243 K/mm3 (150-420); Red Blood Count 4.79 M/mm3 (4.20-5.40); Red Cell Distribution Width 13.3 % (11.6-14.4); White Blood Count 8.7 K/mm3 (4.8-10.8)
[2023-03-06 19:45] LABS: Lactic Acid Reflex 0.8 mmol/L (0.4-2.0)
[2023-03-06 19:50] LABS: Alanine Aminotransferase 37 U/L (14-59); Albumin Level 3.8 g/dL (3.4-5.0); Alkaline Phosphatase 54 U/L (46-116); Anion Gap 7 mmol/L (8-16); Aspartate Amino Transferase 18 U/L (15-37); Bilirubin,Total 0.4 mg/dL (0.00-1.00); Blood Urea Nitrogen 29 mg/dL (7-18); Calcium 9.2 mg/dL (8.5-10.1); Carbon Dioxide 30 mmol/L (21-32); Chloride 97 mmol/L (98-108); Estimated CRCL calculation 74 ml/min; Estimated Glomerular Filt Rate > 60; Glucose 205 mg/dL (70-99); Osmolality Calculated 289 mOsm/kg (285-295); Potassium 4.2 mmol/L (3.5-5.1); Sodium 134 mmol/L (136-145); Total Protein 7.3 g/dL (6.4-8.2)
[2023-03-06 19:51] LABS: CRP 5.9 mg/dL (0.0-0.9); Troponin I < 4.0 ng/L (0.00-60.4)
--- NOTE | 2023-03-06 20:34 | ED.SYNCOPE ---
HPI - Syncope General Chief Complaint: Syncope Stated Complaint: fell Time Seen by Provider: 03/06/23 19:12 Source: patient and family Mode of arrival: wheelchair Limitations: altered mental status and physical limitation History of Present Illness HPI narrative: this is a 52-year-old female with a history of diabetes and hypertension that yesterday around 9:00 p.m. had a fall and hit her head and neck and right hip area, the patient answers appropriately but is slow to respond complaining of neck pain and headache with no neurological deficits no chest pain no no abdominal pain no shortness of breath no fever chills. MD complaint: loss of consciousness Onset (ago): day(s) Description of event: post-event confusion Prodromal symptoms: headache Related Data Home Medications Medication Instructions Recorded Confirmed aripiprazole 10 mg tablet 10 mg PO DAILY 07/05/22 07/05/22 celecoxib 100 mg capsule 100 mg PO DAILY 07/05/22 07/05/22 empagliflozin 10 mg tablet 10 mg PO DAILY 07/05/22 07/05/22 (Jardiance) escitalopram oxalate 10 mg tablet 10 mg PO HS 07/05/22 07/05/22 famotidine 20 mg tablet 10 mg PO BID PRN Acid Reflux 07/05/22 07/05/22 insulin glargine 100 unit/mL (3 36 unit subcut QAM 07/05/22 07/05/22 mL) subcutaneous pen (Basaglar KwikPen U-100 Insulin) liraglutide 0.6 mg/0.1 mL (18 mg/3 1.8 mg subcut DAILY 07/05/22 07/05/22 mL) subcutaneous pen injector (Victoza 3-Mathew) lisinopril 20 mg tablet 20 mg PO DAILY 07/05/22 07/05/22 metformin 500 mg tablet 500 mg PO BID 07/05/22 07/05/22 metoprolol succinate 50 mg 50 mg PO DAILY 07/05/22 07/05/22 tablet,extended release 24 hr pregabalin 200 mg capsule 200 mg PO BID 07/05/22 07/05/22 trazodone 100 mg tablet 200 mg PO HS 07/05/22 07/05/22 Allergies Allergy/AdvReac Type Severity Reaction Status Date / Time terbinafine Allergy Unknown Rash Verified 03/06/23 19:13 Review of Systems Review of Systems: All systems reviewed & are unremarkable except as noted in HPI and below PMFSH Past Medical History Medical History DM type 2 (diabetes mellitus, type 2) HTN (hypertension) Family History Family History Grandparent Cerebrovascular accident Hypertension Mother Diabetes mellitus Family history of cardiovascular disease Mother No problems noted. Social History Social History Smoking status: Current every day smoker Tobacco type: e-cigarettes/vaping Additional smoking assessment comments: Not sure on how much nicotine, smokes one pod a day of custom fluid Alcohol intake: current Substance use: current Substance use type: marijuana Last use: 07/03/22 Lack of Transportation: No Lack of Food: Never True Current Housing: I Have Housing Concerned About Future Housing: No Difficulty Paying Gas/Electric Bills: No Difficulty Paying for Meds: No Currently Unemployed: No Education: High School Diploma/GED Difficulty w/ Childcare or Family Care: No Spiritual care concerns: No Exam Const: General: no acute distress Nutritional Appearance: well nourished and obese Orientation/consciousness: patient oriented x3 Limitations: no limitations Eyes: Conjunctivae: conjunctivae normal Pupils: Equal, round and reactive pupils present EOM: EOMs intact bilaterally Direct Ophthalmoscopy: no photophobia Neck: Neck: no meningeal signs Chest: Chest palpation & inspection: normal inspection of the chest Resp: Effort & Inspection: normal respiratory effort Auscultation: clear to auscultation bilaterally Cardio: Rate: regular rate Rhythm: regular rhythm GI: Auscultation: normal bowel sounds Skin: General skin exam: normal color Rashes: no rashes Neuro: General: patient oriented x3, moves all extremities, no meningeal signs and no focal motor deficits Crania
[2023-03-06 20:47] VITALS: BP 119/74; PULSE 87; RESP 18; O2SAT 95
[2023-03-06] MEDS: SODIUM CHLORIDE 0.9% IV 1,000 ML 100 ML IV CONT (21:15)
[2023-03-06 21:19] VITALS: BP 122/64; PULSE 86; RESP 18; O2SAT 96
[2023-03-06 22:16] LABS: Glucose Point of Care 152 mg/dl (65-105)
[2023-03-06 22:17] VITALS: BMI 30.6
[2023-03-06] MEDS: traZODone HCL 50 MG TABLET 200 MG PO (22:46)
[2023-03-06] MEDS: ESCITALOPRAM OXALATE 10 MG TABLET PO (22:46)
[2023-03-06] MEDS: PREGABALIN (*CRX) 100 MG CAPSULE 200 MG PO (22:46)
[2023-03-07] VITALS: BP 122/63; PULSE 74; RESP 16; TEMP 36.2; O2SAT 95
[2023-03-07 00:24] LABS: SARS-CoV-2 RNA PCR Negative (Negative)
--- NOTE | 2023-03-07 05:16 | PC.NURSE ---
Patient was admitted to the 2nd floor at 2200 for a possible concussion after a fall. Patient was no longer in pain, and wanted to sleep once admitted. Patient was able to ambulate to the bathroom with assist of 1, using a walker and a gait belt. Patient's bed alarm is on. Patient's vitals were WNL. Patient slept well.
[2023-03-07 05:27] LABS: Basophils Percent Auto 1.5 % (0.0-1.0); Eosinophils Absolute Auto 0.59 K/mm3 (0.02-0.50); Eosinophils Percent Auto 8.9 % (1.0-6.0); Hemoglobin 13.3 g/dL (12.0-15.0); Immature Granulocyte Absolute 0.05 K/mm3 (0.00-0.00); Immature Granulocyte Percent A 0.8 % (0.0-0.0); Lymphocytes Absolute Auto 1.59 K/mm3 (1.10-4.50); Lymphocytes Percent Auto 24.1 % (18.0-42.0); Mean Corpuscular HGB Conc 31.7 g/dL (32.0-36.0); Mean Corpuscular Hemoglobin 28.9 pg (27.0-31.0); Mean Corpuscular Volume 91.1 fL (78.0-102.0); Mean Platelet Volume 10.6 fl (9.2-11.8); Monocytes Absolute Auto 0.43 K/mm3 (0.10-0.90); Monocytes Percent Auto 6.5 % (2.0-11.0); Neutrophils Absolute Auto 3.8 K/mm3 (1.7-7.2); Neutrophils Percent Auto 58.2 % (50.0-70.0); Platelet Count Result 226 K/mm3 (150-420); Red Blood Count 4.61 M/mm3 (4.20-5.40); Red Cell Distribution Width 13.1 % (11.6-14.4); White Blood Count 6.6 K/mm3 (4.8-10.8)
[2023-03-07 05:46] LABS: Alanine Aminotransferase 40 U/L (14-59); Albumin Level 3.5 g/dL (3.4-5.0); Alkaline Phosphatase 46 U/L (46-116); Anion Gap 6 mmol/L (8-16); Aspartate Amino Transferase 49 U/L (15-37); Bilirubin,Total 0.4 mg/dL (0.00-1.00); Blood Urea Nitrogen 21 mg/dL (7-18); Calcium 8.7 mg/dL (8.5-10.1); Carbon Dioxide 30 mmol/L (21-32); Chloride 101 mmol/L (98-108); Estimated CRCL calculation 92 ml/min; Estimated Glomerular Filt Rate > 60; Glucose 158 mg/dL (70-99); Osmolality Calculated 290 mOsm/kg (285-295); Potassium 4.3 mmol/L (3.5-5.1); Sodium 137 mmol/L (136-145); Total Protein 6.8 g/dL (6.4-8.2)
[2023-03-07 06:00] VITALS: BP 134/68; PULSE 76; RESP 16; TEMP 36.1; O2SAT 95
--- NOTE | 2023-03-07 07:47 | PM.SD2 ---
Same Day Admit/Disch: HPI History of Present Illness Chief complaint: syncopal episode concussion Narrative: Danni Boone is a 52 [place] [address] Emergency Room Visit Note Signed Patient: Danni Boone MR#: [id number] : 1970 Acct:[id number] Age: 52 ADM Date: 03/11/23 Loc: [facility] Attending Dr: cc: Frank, Mu VAZQUEZ; Jeyson Herrera MD~ HPI - General Adult General Chief complaint: Headache Stated complaint: HEADACHE Time Seen by Provider: 03/11/23 15:39 History of Present Illness HPI narrative: ? This is a 52-year-old female presenting with headache.? Patient was seen here 5 days ago after a fall.? at that time she had a negative CT head and C-spine was diagnosed concussion.? She was discharged a short observation stay.? Since then she has developed a left-sided pounding headache.? She is having difficulty concentrating work and has had some nausea without vomiting.? She has not had loss of consciousness, falls, visual changes or numbness tingling or weakness to any extremity.? She has not taken any pain medication for her headache. [facility] Past Medical History Medical History Chronic pain DM type 2 (diabetes mellitus, type 2) HTN (hypertension) Syncope Family History Family History Grandparent Cerebrovascular accident Hypertension Mother Diabetes mellitus Family history of cardiovascular disease Mother No problems noted. Social History Social History Smoking status: Current every day smoker Tobacco type: e-cigarettes/vaping Second hand tobacco smoke exposure: No Additional smoking assessment comments: Not sure on how much nicotine, smokes one pod a day of custom fluid Alcohol intake: former Substance use: current Substance use type: marijuana Last use: 07/03/22 Do You Feel Safe in your Home?: Yes Lack of Transportation: No Lack of Food: Never True Current Housing: I Do Not Have Housing Concerned About Future Housing: No Difficulty Paying Gas/Electric Bills: No Difficulty Paying for Meds: No Currently Unemployed: No Education: High School Diploma/GED Difficulty w/ Childcare or Family Care: No Spiritual care concerns: No Same Day Admit/Disch: Med Pre-admit Medications Home Medications Medication Instructions Recorded Confirmed Type aripiprazole 10 mg tablet 10 mg PO DAILY 07/05/22 03/11/23 History celecoxib 100 mg capsule 100 mg PO DAILY 07/05/22 03/11/23 History empagliflozin 10 mg tablet 10 mg PO DAILY 07/05/22 03/11/23 History (Jardiance) escitalopram oxalate 10 mg tablet 10 mg PO HS 07/05/22 03/11/23 History famotidine 20 mg tablet 10 mg PO BID PRN Acid Reflux 07/05/22 03/11/23 History insulin glargine 100 unit/mL (3 36 unit subcut QAM 07/05/22 03/11/23 History mL) subcutaneous pen (Basaglar KwikPen U-100 Insulin) liraglutide 0.6 mg/0.1 mL (18 mg/3 1.8 mg subcut DAILY 07/05/22 03/11/23 History mL) subcutaneous pen injector ([employer] 3-Mathew) lisinopril 20 mg tablet 20 mg PO DAILY 07/05/22 03/11/23 History metformin 500 mg tablet 500 mg PO BID 07/05/22 03/11/23 History metoprolol succinate 50 mg 50 mg PO DAILY 07/05/22 03/11/23 History tablet,extended release 24 hr pregabalin 200 mg capsule 200 mg PO BID 07/05/22 03/11/23 History trazodone 100 mg tablet 200 mg PO HS 07/05/22 03/11/23 History acetaminophen 500 mg tablet 1,000 mg PO TID PRN kaylee 7 days #42 03/11/23 Rx tabs ondansetron 4 mg disintegrating 4 mg PO Q8H PRN nausea and 03/11/23 Rx tablet vomiting #30 tabs Review of Systems Review of Systems headache, not feeling well All systems reviewed & are unremarkable except as noted in HPI and below
[2023-03-07 08:00] VITALS: BP 130/72; PULSE 75; RESP 16; TEMP 36; O2SAT 93
[2023-03-07 08:16] LABS: Glucose Point of Care 171 mg/dl (65-105)
[2023-03-07] MEDS: PREGABALIN (*CRX) 100 MG CAPSULE 200 MG PO (09:14)
[2023-03-07] MEDS: lisinopriL 20 MG TABLET PO (09:14)
[2023-03-07] MEDS: FAMOTIDINE 10 MG TABLET PO (09:14)
[2023-03-07] MEDS: ARIPiprazole 5 MG TABLET 10 MG PO (09:14)
[2023-03-07 09:15] VITALS: PULSE 84
[2023-03-07] MEDS: METOPROLOL SUCCINATE EXT REL 50 MG TABCR PO (09:15)
[2023-03-07] MEDS: INSULIN GLARGINE (*BKC) 1,000 UNITS/10 ML VIAL 36 UNITS SUB-Q (09:15)
[2023-03-07] MEDS: CELECOXIB 100 MG CAPSULE PO (09:15)
[2023-03-07] MEDS: ONDANSETRON HCL ODT 4 MG TABLET PO (10:10)
--- NOTE | 2023-03-07 11:31 | PC.NURSE ---
carotid dopplers completed as inpatient will not need to do outpatient.
[2023-03-07 11:53] LABS: Glucose Point of Care 183 mg/dl (65-105)
--- NOTE | 2023-03-10 09:11 | PC.NURSE ---
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
== END 2023-03-07 13:50 | disposition home or self-care (01) ==
LOC: CHSED 20:39 → CHS2ND 21:32
PROVIDERS: Admitting Provider Internal Medicine; Emergency Provider Emergency Medicine; Visit Provider Internal Medicine
DX: S06.0X9A Concussion with loss of consciousness of unspecified duration, initial encounter (principal); M47.812 Spondylosis without myelopathy or radiculopathy, cervical region; M16.0 Bilateral primary osteoarthritis of hip; M19.09 Primary osteoarthritis, other specified site; G89.29 Other chronic pain; R94.31 Abnormal electrocardiogram [ECG] [EKG]; E11.9 Type 2 diabetes mellitus without complications; I10 Essential (primary) hypertension; F17.290 Nicotine dependence, other tobacco product, uncomplicated; Z79.84 Long term (current) use of oral hypoglycemic drugs; Z20.822 Contact with and (suspected) exposure to COVID-19; Z79.4 Long term (current) use of insulin; Z79.85 Long-term (current) use of injectable non-insulin antidiabetic drugs; Z79.899 Other long term (current) drug therapy; Z82.49 Family history of ischemic heart disease and other diseases of the circulatory system; Z83.3 Family history of diabetes mellitus
CPT/HCPCS: 36415; 70450; 72125; 73521; 80053; 82948; 83605; 84484; 85025; 86140; 87635; 93005; 93880; 97161; 99285; A9270; G0378; J1815; J7030

== ENCOUNTER 2023-03-11 15:29 | Emergency (ER) | payer SELFPAY ==
--- NOTE | ~2023-03-11 | CT_ITS ---
EXAMINATION: CT brain wo con INDICATION: Headache, history of intracranial aneurysm COMPARISON: 03/06/2023 TECHNIQUE: Standard unenhanced head CT. The dose-length product (DLP) was 681.00 mGy-cm. The mA was a djusted according to patient size. Iterative reconstruction technique was employed. FINDINGS: No intracranial hemorrhage, acute infarction, or abnormal mass lesion. Metallic density is again noted in the left suprasellar cistern, consistent with history of treatment for intracranial an eurysm. The ventricles are normal. No abnormal mass effect or midline shift. The castaneda-white matter di fferentiation is normal. The basal cisterns are patent. The orbits are normal. The paranasal sinuses, mastoids and calvarium are normal. IMPRESSION: 1. No acute intracranial abnormality. Reviewed, dictated and finalized at location L. MCORN THRESHER
[2023-03-11 15:30] VITALS: BP 131/72; PULSE 74; RESP 18; TEMP 36.3; O2SAT 98
[2023-03-11 16:00] VITALS: BP 119/64; PULSE 62; RESP 17; O2SAT 97
--- NOTE | 2023-03-11 16:00 | ED.GENADULT ---
HPI - General Adult General Chief complaint: Headache Stated complaint: HEADACHE Time Seen by Provider: 03/11/23 15:39 History of Present Illness HPI narrative: This is a 52-year-old female presenting with headache. Patient was seen here 5 days ago after a fall. at that time she had a negative CT head and C-spine was diagnosed concussion. She was discharged a short observation stay. Since then she has developed a left-sided pounding headache. She is having difficulty concentrating work and has had some nausea without vomiting. She has not had loss of consciousness, falls, visual changes or numbness tingling or weakness to any extremity. She has not taken any pain medication for her headache. Related Data Home Medications Medication Instructions Recorded Confirmed aripiprazole 10 mg tablet 10 mg PO DAILY 07/05/22 03/11/23 celecoxib 100 mg capsule 100 mg PO DAILY 07/05/22 03/11/23 empagliflozin 10 mg tablet 10 mg PO DAILY 07/05/22 03/11/23 (Jardiance) escitalopram oxalate 10 mg tablet 10 mg PO HS 07/05/22 03/11/23 famotidine 20 mg tablet 10 mg PO BID PRN Acid Reflux 07/05/22 03/11/23 insulin glargine 100 unit/mL (3 36 unit subcut QAM 07/05/22 03/11/23 mL) subcutaneous pen (Basaglar KwikPen U-100 Insulin) liraglutide 0.6 mg/0.1 mL (18 mg/3 1.8 mg subcut DAILY 07/05/22 03/11/23 mL) subcutaneous pen injector (Victoza 3-Mathew) lisinopril 20 mg tablet 20 mg PO DAILY 07/05/22 03/11/23 metformin 500 mg tablet 500 mg PO BID 07/05/22 03/11/23 metoprolol succinate 50 mg 50 mg PO DAILY 07/05/22 03/11/23 tablet,extended release 24 hr pregabalin 200 mg capsule 200 mg PO BID 07/05/22 03/11/23 trazodone 100 mg tablet 200 mg PO HS 07/05/22 03/11/23 Allergies Allergy/AdvReac Type Severity Reaction Status Date / Time terbinafine Allergy Unknown Rash Verified 03/11/23 15:34 [facility] Past Medical History Medical History Chronic pain DM type 2 (diabetes mellitus, type 2) HTN (hypertension) Syncope Family History Family History Grandparent Cerebrovascular accident Hypertension Mother Diabetes mellitus Family history of cardiovascular disease Mother No problems noted. Social History Social History Smoking status: Current every day smoker Tobacco type: e-cigarettes/vaping Second hand tobacco smoke exposure: No Additional smoking assessment comments: Not sure on how much nicotine, smokes one pod a day of custom fluid Alcohol intake: former Substance use: current Substance use type: marijuana Last use: 07/03/22 Do You Feel Safe in your Home?: Yes Lack of Transportation: No Lack of Food: Never True Current Housing: I Do Not Have Housing Concerned About Future Housing: No Difficulty Paying Gas/Electric Bills: No Difficulty Paying for Meds: No Currently Unemployed: No Education: High School Diploma/GED Difficulty w/ Childcare or Family Care: No Spiritual care concerns: No Exam Narrative: APPEARANCE: No apparent distress. Head: atraumatic. EYES: EOMI, NOSE: Atraumatic NECK: Trachea midline RESPIRATORY: No increased rate of breathing CARDIOVASCULAR: RRR, ABDOMINAL: Non-distended MUSCULOSKELETAl: No obvious deformities NEURO: Alert. Cranial nerves 2-12 grossly intact. Sensation light touch, motor function cerebellar function intact for 4 extremities. Gait exam was normal. SKIN:: Warm, dry. Normal color PSYCHIATRIC: Normal affect Course Vital Signs Vital signs: Vital Signs Temperature 97.3 F L 03/11/23 15:30 Pulse Rate 74 03/11/23 15:30 Respiratory Rate 18 03/11/23 15:30 Blood Pressure 131/72 03/11/23 15:30 Pulse Oximetry 98 03/11/23 15:30 Oxygen Delivery Room Air 03/11/23 15:30 Temperature 97.3 F L 03/11/23 15:30 Pulse Rate 74 03/11/23 15:30 Respiratory Rate
[2023-03-11] MEDS: ONDANSETRON HCL ODT 4 MG TABLET PO (16:14)
[2023-03-11] MEDS: ACETAMINOPHEN 500 MG TABLET 1000 MG PO (16:15)
[2023-03-11] MEDS: PROCHLORPERAZINE EDISYLATE 10 MG/2 ML VIAL IM (16:15)
[2023-03-11] MEDS: diphenhydrAMINE HCl CAP 25 MG CAPSULE PO (16:15)
[2023-03-11 16:30] VITALS: BP 101/64; PULSE 58; RESP 17; O2SAT 99
[2023-03-11 16:40] VITALS: BP 102/69; PULSE 57; RESP 17; TEMP 36.7; O2SAT 98
[2023-03-11] MEDS: IBUPROFEN 400 MG TABLET 800 MG PO (16:44)
== END 2023-03-11 16:40 | disposition home or self-care (01) ==
PROVIDERS: Emergency Provider Emergency Medicine; PCP Internal Medicine
DX: G44.309 Post-traumatic headache, unspecified, not intractable (principal); R11.0 Nausea; E11.9 Type 2 diabetes mellitus without complications; I10 Essential (primary) hypertension; F17.290 Nicotine dependence, other tobacco product, uncomplicated; Z79.899 Other long term (current) drug therapy; Z79.4 Long term (current) use of insulin; W19.XXXA Unspecified fall, initial encounter
CPT/HCPCS: 70450; 96372; 99284; A9270; J0780

== ENCOUNTER 2024-03-11 10:46 | Emergency (ER) | payer SELFPAY ==
[2024-03-11] VITALS (12 sets, daily range): BP systolic 126–155; BP diastolic 66–97; PULSE 53–78; RESP 11–24; TEMP 36.8; O2SAT 91–100
--- NOTE | ~2024-03-11 | CT_ITS ---
EXAMINATION: CT thoracic lumbar wo con DATE: 03/11/2024 12:55 INDICATION: Mid and low back pain TECHNIQUE: Computed tomography (CT) of the thoracic and lumbar spine was performed without intravenou s contrast. Sagittal and coronal reconstructions were performed. Automated exposure control and itera tive reconstruction technique were employed. The dose-length product was 2211.16 mGy-cm. COMPARISON: None FINDINGS: Thoracic spine: Alignment is normal. Vertebral body heights are normal. Moderate disc height loss and visualized lowe r cervical spine at C5-C6 and C6-C7. Additional moderate disc height loss at T11-T12 and T12-L1. Mini mal to mild disc height loss in the intervening thoracic spine. No central canal stenosis. Multilevel mild upper thoracic and moderate to severe lower thoracic facet osteoarthritis with only negligible scattered neural foraminal stenosis at a few levels in the midthoracic spine. Paravertebral soft tiss ues as well as the visualized portions of the posterior lungs and mediastinum are unremarkable. Promi nent diffuse hepatic steatosis. Lumbar spine: Alignment is normal. Vertebral body and disc heights are normal. Disc bulges resulting in mild centra l canal stenosis at L3-L4 and L4-L5. Severe facet osteoarthritis bilaterally at L3-L4, L4-L5 and L5-S 1 mild facet osteoarthritis at L1-L2 and L2-L3. Mild bilateral neural foraminal stenosis at L4-L5. Mo derate bilateral sacroiliac osteoarthritis. Paravertebral soft tissues are unremarkable. IMPRESSION: 1. Mild to moderate lower thoracic predominant spondylosis. 2. Minimal lumbar spondylosis with severe lower lumbar facet osteoarthritis. 3. Prominent hepatic steatosis. Reviewed, dictated and finalized at location A. OMES ANALYST
--- NOTE | ~2024-03-11 | XR_ITS ---
AP and oblique views of the bilateral ribs Clinical History: Pain Findings: There are subacute fractures of the left seventh, eighth, and ninth ribs. Osseous alignment is anatomic. Lungs are clear, without focal consolidation or pleural effusion. Cardiomediastinal con tour is within normal limits. Soft tissues are unremarkable. Impression: Subacute fractures of the left seventh, eighth, and ninth ribs. Reviewed, dictated and finalized at location . TECH Impression: Subacute fractures of the left seventh, eighth, and ninth ribs.
--- NOTE | ~2024-03-11 | XR_ITS ---
AP view of the pelvis and AP and lateral views of the right hip Clinical history: Pain Findings: No acute fracture or dislocation is seen. Osseous alignment is anatomic. Bilateral hip and SI joint spaces are preserved. Soft tissues are unremarkable. Impression: No significant abnormality is seen. Reviewed, dictated and finalized at [facility]. GENCY TECHNICIAN Impression: No significant abnormality is seen.
--- NOTE | ~2024-03-11 | CT_ITS ---
EXAMINATION: CTA BRAIN/CAROTID DATE: 03/11/2024 11:29 INDICATION: Aneurysm presenting with slurred speech. Fall. TECHNIQUE: Computed tomographic angiography (CTA) of the head and neck was performed with 100 mL Omni paque-350 intravenous contrast. Multiplanar reconstructions and maximum intensity projection 3D-recon structions of the carotid arteries and of the intracranial arteries were created by the technologist on a separate workstation. Precontrast CT of the head was also obtained. Automated exposure control and iterative reconstruction technique were employed.The dose-length product was 1706.64 mGy-cm. COMPARISON: None. FINDINGS: Carotid arteries: Visualized aortic arch and great vessels arising from the arch are normal in caliber with no atherosc lerotic plaque or dissection. Left vertebral artery is mildly dominant with no evident atheroscleroti c plaque along the cervical portions of the arteries. There is no evident atherosclerotic plaque with 0% stenosis of the right and left carotid bulbs relative to normal distal artery lumen diameter (MIGUEL ÁNGEL CET criteria). Visualized apices of the lungs are clear. 3.5 cm heterogeneously enhancing left thyroi d mass with coarse calcification. Cervical soft tissues are otherwise unremarkable. Head: No fracture. No acute intracranial hemorrhage, acute infarction or abnormal extra axial fluid collect ion. Metallic embolization coil likely for treatment of reported aneurysm located at the bifurcation of the left internal carotid artery. Ventricles are normal and symmetric. No mass/mass effect. No abn ormally enhancing brain lesions on the postcontrast imaging. The orbits, paranasal sinuses and mastoi d air cells are normal. Intracranial arteries The left vertebral artery is dominant. The basilar artery is relatively small. There is a patent left P1 segment with additional collateral flow to the left posterior cerebral artery supplied from the l eft internal carotid artery via a left posterior communicating artery. The right internal carotid art miguel angel via a right posterior communicating artery appears to represent the sole supply to the right post erior cerebral circulation. There is no hemodynamically significant stenosis in the vertebral, basila r and internal carotid arteries. There is streak artifact surrounding the metallic aneurysm coils loc ated at the bifurcation of the left internal carotid artery. No other aneurysms identified. Both A1 segments are patent. Cerebral arterial arborization appears symmetric. IMPRESSION: 1. No evident atherosclerotic plaque with 0% stenosis of the right and left carotid bulbs relative to normal distal artery lumen diameter (NASCET criteria). 2. Normal brain. No fracture or acute intracranial process. 3. Normal anatomic variation of the [place] as detailed above and coiled aneurysm at intracr anial bifurcation of the left internal carotid artery. 4. 3.5 cm left thyroid mass. Consider ultrasound-guided biopsy. Reviewed, dictated and finalized at location A. BENCH OPERATOR HELPER IMPRESSION: 1. No evident atherosclerotic plaque with 0% stenosis of the right and left car otid bulbs relative to normal distal artery lumen diameter (NASCET criteria). 2. Normal brain. No fracture or acute intracranial process. 3. Normal anatomic variation of the [place] as detailed above and coil ed aneurysm at intracranial bifurcation of the left internal carotid artery. 4. 3.5 cm left thyroid mass. Consider ultrasound-guided biopsy.
[2024-03-11 11:16] LABS: Basophils Absolute Auto 0.06 K/mm3 (0.00-0.10); Eosinophils Absolute Auto 0.53 K/mm3 (0.02-0.50); Eosinophils Percent Auto 8.6 % (1.0-6.0); Hematocrit 42.5 % (35.0-49.0); Hemoglobin 14.4 g/dL (12.0-15.0); Immature Granulocyte Absolute 0.03 K/mm3 (0.00-0.00); Immature Granulocyte Percent A 0.5 % (0.0-0.0); Lymphocytes Absolute Auto 1.77 K/mm3 (1.10-4.50); Lymphocytes Percent Auto 28.9 % (18.0-42.0); Mean Corpuscular HGB Conc 33.9 g/dL (32-36); Mean Corpuscular Hemoglobin 28.6 pg (27.0-31.0); Mean Corpuscular Volume 84.3 fL (78.0-102.0); Mean Platelet Volume 9.9 fl (9.2-11.8); Monocytes Absolute Auto 0.39 K/mm3 (0.10-0.90); Monocytes Percent Auto 6.4 % (2.0-11.0); Neutrophils Absolute Auto 3.35 K/mm3 (1.70-7.20); Neutrophils Percent Auto 54.6 % (50.0-70.0); Platelet Count Result 255 K/mm3 (150-420); Red Blood Count 5.04 M/mm3 (4.20-5.40); White Blood Count 6.1 K/mm3 (4.8-10.8)
[2024-03-11 11:31] LABS: INR 0.9; Partial Thromboplastin Time 25.7 Sec (23.9-30.70); Prothrombin Time 10.4 Seconds (9.50-12.1)
[2024-03-11 11:36] LABS: Alanine Aminotransferase 33 U/L (14-59); Albumin Level 3.8 g/dL (3.4-5.0); Alkaline Phosphatase 80 U/L (46-116); Anion Gap 13 mmol/L (4-12); Aspartate Amino Transferase 21 U/L (15-37); Bilirubin,Total 0.6 mg/dL (0.00-1.00); Blood Urea Nitrogen 17 mg/dL (7-18); Calcium 9.2 mg/dL (8.5-10.1); Carbon Dioxide 24 mmol/L (21-32); Chloride 100 mmol/L (98-108); Estimated CRCL calculation 135 ml/min; Estimated Glomerular Filt Rate > 60; Glucose 125 mg/dL (70-99); Osmolality Calculated 286 mOsm/kg (285-295); Potassium 3.7 mmol/L (3.5-5.1); Sodium 137 mmol/L (136-145)
[2024-03-11 11:41] LABS: Lactic Acid Reflex 1.3 mmol/L (0.4-2.0)
[2024-03-11] MEDS: SODIUM CHLORIDE 0.9% IV 1,000 ML 999 ML IV CONT (12:01)
[2024-03-11] MEDS: MORPHINE SULFATE (*CRX) 2 MG/ML INJ IV PUSH (12:01)
[2024-03-11 12:14] LABS: Creatine Kinase 74 U/L (26-192)
--- NOTE | 2024-03-11 12:27 | PC.NURSE ---
Cervical collar removed
--- NOTE | 2024-03-11 12:54 | PC.NURSE ---
Cervical collar placed back on per [place]'
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
== END 2024-03-11 13:35 | disposition short-term general hospital (02) ==
PROVIDERS: Emergency Provider Emergency Medicine
DX: S09.90XA Unspecified injury of head, initial encounter (principal); E11.9 Type 2 diabetes mellitus without complications; I10 Essential (primary) hypertension; F17.290 Nicotine dependence, other tobacco product, uncomplicated; Z79.899 Other long term (current) drug therapy; Z79.4 Long term (current) use of insulin; W18.30XA Fall on same level, unspecified, initial encounter
CPT/HCPCS: 36415; 70496; 70498; 71110; 72128; 72131; 73502; 80053; 82550; 83605; 85025; 85610; 85730; 96361; 96374; 99285; J2270; J7030; L0150; Q9967